=== PATIENT | male | born 2000 | race Caucasian/White ===

== ENCOUNTER 2025-04-01 18:36 | Emergency (ER) | payer OTHER, BC, SELFPAY ==
--- NOTE | ~2025-04-01 | CT_ITS ---
CT of the Abdomen and Pelvis: Indication: Abdominal pain Technique: 2.5 mm axial scans were obtained through the abdomen and pelvis following intravenous adm inistration of 100 cc of Omnipaque 350. Dose reduction technique was used on this scan by utilizing a utomated exposure control and iterative reconstruction technique. The dose-length product (DLP) was 2 74.47 mGy-cm. Findings: Scans through the lung bases are unremarkable. The liver, spleen, pancreas, gallbladder, adrenals and kidneys are within normal limits. No evidence of aortic aneurysm. No lymphadenopathy. No bowel obstruction or bowel wall thickening. There is no evidence to suggest acute appendicitis. Images through the pelvis were performed. Urinary bladder unremarkable. No pelvic mass seen. No ascit es. Impression: No significant abnormalities seen. Reviewed, dictated and finalized at location . Impression: No significant abnormalities seen.
[2025-04-01 18:39] VITALS: BP 154/103; PULSE 121; RESP 18; TEMP 36.7; O2SAT 99
--- OUTSIDE RECORDS SUMMARY | 2025-04-01 18:39 | XMS_ITS | Referral Summary ---
Author Organization [address] Address [address] [place] [phone] Care Team Providers Care Industrial Insulator Name Role Phone Unknown, Notinfile Primary Care Provider Unavail able Allergies No known active allergies Medications No known medications Active Problems No known active problems Social History Tobacco Use Types Packs/Day Years Used Date Smoking Tobacco: Never Assessed Sex and Gender Information Value Date Recorded Sex Assigned at Not on file Legal Sex Male 11:38 PM SPRING INTERN Gender Identity Not on file Sexual Orientation Not on file Last Filed Vital Signs Vital Sign Reading Time Taken Comments Blood Pressure 126/70 07/27/2024 7:31 PM CDT Pulse 78 07/27/2024 7:31 PM CDT Temperature 36.8 C (98.3 F) 07/27/2024 7:31 PM CDT Respiratory Rate 16 07/27/2024 7:31 PM CDT Oxygen Saturation 99% 07/27/2024 7:31 PM CDT Inhaled Oxygen Concentration - - Weight 68.5 kg (151 lb) 07/27/2024 7:31 PM CDT Height 182.9 cm (6') 07/27/2024 7:31 PM CDT Body Mass Index 20.48 07/27/2024 7:31 PM CDT Plan of Treatment Not on file Insurance AETNA SIG [id number] CIGNA AETNA SIG [id number] CIGNA AETNA SIG [id number] CIGNA Care Teams Industrial Insulator Relationship Specialty Start Date End Date Unknown, Notinfile PCP - General 10/05/22
--- OUTSIDE RECORDS SUMMARY | 2025-04-01 18:39 | XMS_ITS | Clinical Summary ---
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 Gender Identity Not on file Sexual Orientation Not on file Obstetrics History Last Filed Vital Signs Vital Sign Reading [...] 07/27/2024 7:31 PM CDT Plan of Treatment Health Maintenance Due Date Last Done Comments Depression Screening 2000 Hepatitis C Screening 2000 HPV Vaccines (1 - Male 3-dos e series) 01/19/2015 Regular Well Visit/Exam 18-64 01/19/2018 Influenza Vaccine (Season Ended) 2025 DTaP/Tdap/Td Vaccine (8 - Td or Tdap) 04/13/2031 04/13/2021, 10/10/2012, 05/20/2004, Additional history exists Hepatitis B Screening Completed 06/07/2001 , 2000, 2000 Pneumococcal vaccine <65 Completed 002, 2000, 2000, Additional history exists Varicella Vaccines Completed 10/10/2012, 06/07/2001 Insurance AETNA SIG [id number] CIGNA AETNA SIG [id number] CIGNA AETNA SIG [id number] CIGNA Care Teams Button Grader Relationship Specialty Start Date End Date Unknown, Notinfile PCP - General 10/05/22
--- OUTSIDE RECORDS SUMMARY | 2025-04-01 18:39 | XMS_ITS | Clinical Summary ---
Author Organization [facility] Address [address] [facility] [place] [address] Care Team Providers Care Occupational Therapist Assistant Name Role Phone Unavailable Primary Care Provider Unavailabl e Source Comments [facility],non-owned Affiliates and Associated Physician Practices is amultiple site organization consisting of ambulatory clinics and hospital sitesin [place], [place], [place]. This disclosure is being madepursuant to the Care Everywhere program and may not contain all information available regarding this patient. Last updated 18.[facility] Allergies No known active allergies Medications * Be aware that medications may not be up to date on this document. Alwaysverify current medications with the patient. No known medications Active Problems No known active problems Immunizations Immunization Administration Dates Next Due DTaP VACCINE IM (6wk-6yrs) 05/20/2004,,2000, 0,2000 HIB Hep B 06/07/2001,2000,2000 MENINGOCOCCAL ACWY (MCV4P) VAC IM 10/10/2012 MMR 05/20/2004,06/07/2001 PNEUMOCOCCAL PCV7 CONJ, PEDS 12/07/2001, 2000,2000, 0 POLIO IPV 05/20/2004, 2,2000, 0 TDAP (7yrs+) 10/10/2012 VARICELLA 10/10/2012,06/07/2001 Social History Tobacco Use Types Packs/Day Years Used Date Smoking Tobacco: Every Day Smokeless Tobacco: Never Alcohol Use Standard Drinks/Week Comments Not Asked 0 (1 standard drink = 0.6 oz pur e alcohol) Sex and Gender Information Value Date Recorded Sex Assigned at Not on file Legal 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 Male 1:57 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 Gender Identity Not on file Sexual Orientation Not on file Last Filed Vital Signs Vital Sign Reading Time Taken Comments Blood Pressure 118/62 03/18/2018 11:53 AM CDT Pulse 60 03/18/2018 11:53 AM CDT Temperature 37 C (98.6 F) 03/18/2018 11:53 AM CDT Respiratory Rate 16 03/18/2018 11:53 AM CDT Oxygen Saturation 98% 03/18/2018 11:53 AM CDT Inhaled Oxygen Concentration - - Weight 59 kg (130 lb) 03/18/2018 11:53 AM CDT Height 182.9 cm (6') 03/18/2018 11:53 AM CDT Body Mass Index 17.63 03/18/2018 11:53 AM CDT Plan of Treatment Health Maintenance Due Date Last Done Comments HIV SCREENING 01/19/2015 HPV VACCINE (1 - Male 3-dose series) 01/19/2015 HEPATITIS C SCREENING 01/15/2018 DTAP/TDAP/TD VACCINES (7 - Td or Tdap) 10/10/2022 10/10/2012, 05/20/2004, 12/07/2001, Additional history exists COVID-19 VACCINE ( - season) 2024 DEPRESSION SCREENING 10/03/2024 INFLUENZA VACCINE (Season Ended) 2025 ZOSTER VACCINE (1 of 2) 01/19/2050 HEPATITIS B VACCINE Completed 06/07/2001, 2000, 2000 HIB VACCINE Completed 06/07/2001, 0810/1999, 2000 PNEUMOCOCCAL VACCINE Completed 12/07/2001, 2000, 2000, Additional history exists MENINGOCOCCAL GROUPS A/C/Y/W VACCINE Aged Out 10/10/2012 No longer eligible based on patient's age to complete this topic MENINGOCOCCAL (Group B) VACCINE SHARED DECISION-MAKING Aged Out No longer eligible based on patient's age to complete this topic
--- OUTSIDE RECORDS SUMMARY | 2025-04-01 18:39 | XMS_ITS | Clinical Summary ---
Author Organization [facility] Address [address] [place] [address] Phone Care Team Providers Care Web Analyst Name Role Phone Provider, None Primary Care Provider Unavailabl e Allergies No known active allergies Medications No known medications Social History Tobacco Use Types Packs/Day Years Used Date Smoking Tobacco: Never Smokeless Tobacco: Never Tobacco Cessation:Counseling Given: No Alcohol Use Standard Drinks/Week Comments Yes 0 (1 standard drink = 0.6 oz pur e alcohol) social Sexually Active Control Partners Comments Yes Female Sex and Gender Information Value Date Recorded Sex Assigned at Not on file Legal Sex Male 11:42 AM CDT Gender Identity Not on file Sexual Orientation Not on file Last Filed Vital Signs Vital Sign Reading Time Taken Comments Blood Pressure 140/72 09/21/2018 3:21 PM DCS ENGINEER Pulse 64 09/21/2018 3:21 PM DCS ENGINEER Temperature 36.1 C (97 F) 09/21/2018 3:21 PM DCS ENGINEER Respiratory Rate 16 09/21/2018 3:21 PM DCS ENGINEER Oxygen Saturation 98% 09/21/2018 3:21 PM DCS ENGINEER Inhaled Oxygen Concentration - - Weight 63 kg (139 lb) 09/21/2018 3:21 PM DCS ENGINEER Height 182.9 cm (6') 09/21/2018 3:21 PM DCS ENGINEER Body Mass Index 18.85 09/21/2018 3:21 PM DCS ENGINEER Plan of Treatment Health Maintenance Due Date Last Done Comments Hepatitis C Virus (HCV) Screening 2000 Human Papillomavirus (HPV) Immunization (1 - Male 3-dose series) 01/19/2015 Hepatitis B Immunization (1 of 3 - 19+ 3-dose series) 01/19/2019 SARS-COV-2 Immunization ( season) 2024 Influenza Immunization (Seas on Ended) 2025 Respiratory Syncytial Virus (RSV) Immunization (Adult) (1 - 1-dose 75+ series) 01/19/2075 DTaP/Tdap/Td Immunization Discontinued 04/13/2021 TdaP Immunization Completed 04/13/2021 Meningococcal Immunization (ACWY) Aged Out No longer eligible based on patient's age to complete this topic Pneumococcal Immunization Combined Aged Out No longer eligible based on patient's age to complete this topic Rotavirus Immunization Aged Out No lo nger eligible based on patient's age to complete this topic Insurance [facility] Care Teams Web Analyst Relationship Specialty Start Date End Date Provider, None [place] PCP - General 07/10/18
[2025-04-01 19:01] LABS: Hematocrit 43.8 % (42.0-52.0); Hemoglobin 15.5 g/dL (14.0-18.0); Immature Granulocyte Percent A 0.3 % (0-0.5); Lymphocytes Absolute Auto 3.38 K/mm3 (0.9-3.2); Mean Corpuscular HGB Conc 35.4 g/dl (32-36); Mean Corpuscular Hemoglobin 30.8 pg (26-34); Mean Corpuscular Volume 87.1 fl (80-100); Nucleated Red Blood Cells Absolute Auto 0.000 K/mm3 (0.0-0.012); Nucleated Red Blood Cells Perc 0.0 % (0.0-0.2); Platelet Count Result 276 k/mm3 (150-375); Red Blood Count 5.03 M/mm3 (4.6-6.20); White Blood Count 9.5 K/mm3 (4.5-10.0)
[2025-04-01 19:14] LABS: Alanine Aminotransferase 23 U/L (6-50); Albumin Level 5.0 g/dL (3.5-5.1); Alkaline Phosphatase 60 U/L (38-126); Anion Gap 12 mmol/L (4-12); Aspartate Amino Transferase 38 U/L (17-59); Bilirubin,Total 1.8 mg/dL (0.2-1.3); Blood Urea Nitrogen 10 mg/dL (9-20); Calcium 9.4 mg/dL (8.4-10.2); Carbon Dioxide 25 mmol/L (22-30); Chloride 98 mmol/L (98-107); Estimated CRCL calculation 93 ml/min; Estimated Glomerular Filt Rate > 60; Glucose 114 mg/dL (65-110); Lipase 66 U/L (23-300); Potassium 4.0 mmol/L (3.4-5.0); Sodium 135 mmol/L (137-145); Total Protein 8.4 g/dL (6.3-8.2)
[2025-04-01 19:41] LABS: Add Urine Microscopic? NO; Appearance Urine Clear (Clear); Glucose Urine UA Negative (Negative); Leukocyte Esterase Ur Negative LEU/UL (Negative); Nitrate Urine Negative (Negative); Specific Grav Ur 1.005 (1.001-1.035)
[2025-04-01 23:09] VITALS: BP 138/81; PULSE 65; RESP 17; O2SAT 100
--- NOTE | 2025-04-01 23:29 | ED.ABDPAIN ---
HPI - Abdominal Pain General Chief Complaint: Abdominal Pain Stated Complaint: Early signs of cirrhosis Time Seen by Provider: 04/01/25 22:55 Source: patient and other Mode of arrival: ambulatory Limitations: no limitations History of Present Illness HPI narrative: Patient presents reportedly with concerns that he has early signs of cirrhosis. He reports days had a decreased/no appetite. He has been intermittently nauseated but not vomiting. He is having right lower quadrant abdominal pain although states it is very pinpoint in seems that is tender to the touch. He does have a sunburn across his chest notes that the pain in the RLQ is constant but worse with palpation. Denies any fevers, chills, or loose stools. He is concerned for yellow around the eyes. He does endorse drinking daily. 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 On days off, also drinks, combination beers and liquor. He has been having nightly urinary frequency. This started a few weeks ago. He denies any incontinence. No previous abdominal surgeries. Does not have a primary care physician. 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 HEAD: Normocephalic, atraumatic. EYES: Non injected, mildly icteric bilaterally ENT: Nares clear, no rhinorrhea or epistaxis. Gross auditory acuity intact. NECK: Supple. No meningismus. CHEST: Speaking in full sentences. No respiratory distress. HEART: Tachycardic rate and rhythm. . ABDOMEN: Soft, nondistended. No rigidity or guarding. Not peritoneal including no localized peritonitis (no TTP throughout). EXTREMITIES: Normal range of motion. No lower extremity edema. SKIN: Warm, dry, no rash. 1st degree sunburn overlying chest and abdomen. NEURO: No focal deficits. Alert and oriented. Answering questions. Following commands. Normal speech without aphasia or dysarthria. PSYCH: Normal mood and affect. Course Vital Signs Vital signs: Vital Signs Temperature 98.1 F 04/01/25 18:39 Pulse Rate 121 H 04/01/25 18:39 Respiratory Rate 18 04/01/25 18:39 Blood Pressure 154/103 H 04/01/25 18:39 Pulse Oximetry 99 04/01/25 18:39 Oxygen Delivery Room Air 04/01/25 18:39 Temperature 98.2 F 04/02/25 02:33 Pulse Rate 78 04/02/25 02:33 Respiratory Rate 17 04/02/25 02:33 Blood Pressure 134/88 04/02/25 02:33 Pulse Oximetry 99 04/02/25 02:33 Oxygen Delivery Room Air 04/01/25 23:09 MDM - Abdominal Pain MDM Narrative Medical decision making narrative: Patient presents with concern for early signs of cirrhosis. 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 Having nausea and right lower quadrant pain as well as faint scleral icterus and increased nightly urinary frequency. In the emergency department he is afebrile with vital signs notable for tachycardia hypertension though resolved on repeat. Bilirubin is mildly elevated. Otherwise, LFTs are in normal. No leukocytosis. Predominantly indirect bili. Ddx indirect hyperbilirubinemia Over production of bilirubin (hemolytic anemia), reduced uptake (cirrhosis or congestive hepatopathy), impaired conjugation, biliary obstruction, hereditary disease (Gilbert syndrome, Garret-Kj syndrome, Crigler-Ari syndrome), medication side effect (allopurinol, anabolic steroids, antibiotics, antimalarials, etc.) Patient's workup otherwise unremarkable. CT read as possible enteritis as below. Patient is otherwise stable for discharge. Provided prescription Zofran. Advised follow-up with a PCP in given contact information for 1 Differential Diagnosis Differential diagnosis: Likely abdominal pain, acute appendicitis, constipation, pancreatitis and other (Considered cirrhosis, hepatitis, spontaneous bacterial peritonitis; alcohol side effect/hangover; UTI; alcohol side effect as a diuretic) Lab Data Attestation: I reviewed the patient's lab results. Lab results narrative: CBC generally unremarkable except for abnormalities on differential 04/01/25 18:53 04/01/25 18:53 Labs: Lab Results 04/01/25 04/02/25 04/02/25 Range/Units 18:53 00:09 00:16 WBC 9.5 (4.5-10.0) K/mm3 RBC 5.03 (4.6-6.20) M/mm3 Hgb 15.5 (14.0-18.0) g/dL Hct 43.8 (42.0-52.0) % MCV 87.1 (80-100) fl MCH 30.8 (26-34) pg MCHC 35.4 (32-36) g/dl RDW 12.2 (11.5-14.5) % Plt Count 276 (150-375) k/mm3 MPV 9.1 (7.4-10.4) fl Immature Gran % (Auto) 0.3 (0-0.5) % Neut % (Auto) 51.0 (45.5-73.1) % Lymph % (Auto) 35.7 (18.3-44.2) % [place] % (Auto) 10.8 H (2.6-8.5) % Eos % (Auto) 1.5 (0-4.4) % Baso % (Auto) 0.7 (0.2-1.2) % Lymph # (Auto) 3.38 H (0.9-3.2) K/mm3 [place] # (Auto) 1.0 H (0.1-0.6) K/mm3 Eos # (Auto) 0.1 (0-0.3) K/mm3 Baso # (Auto) 0.1 (0.0-0.1) K/mm3 Abs Immat Gran (auto) 0.03 (0.00-0.031) K/mm3 Absolute Neuts (auto) 4.8 (1.3-6.7) K/mm3 Absolute Nucleated RBC 0.000 (0.0-0.012) K/mm3 Nucleated RBC % 0.0 (0.0-0.2) % PT 13.3 (11.1-14.7) Seconds INR 1.0 APTT 26.3 (22.3-36.8) Seconds Sodium 135 L (137-145) mmol/L Potassium 4.0 (3.4-5.0) mmol/L Chloride 98 (98-107) mmol/L Carbon Dioxide 25 (22-30) mmol/L Anion Gap 12 (4-12) mmol/L BUN 10 (9-20) mg/dL Creatinine 1.07 (0.7-1.3) mg/dL Estim Creat Clear Calc 93 ml/min Estimated GFR > 60 (59 - ) Glucose 114 H (65-110) mg/dL Calcium 9.4 (8.4-10.2) mg/dL Total Bilirubin 1.8 H (0.2-1.3) mg/dL Direct Bilirubin 0.0 (0-0.3) mg/dL Indirect Bilirubin 1.8 H (0-1.1) mg/dL AST 38 (17-59) U/L ALT 23 (6-50) U/L Alkaline Phosphatase 60 (38-126) U/L Ammonia < 9 L (9-30) umol/L Total Protein 8.4 H (6.3-8.2) g/dL Albumin 5.0 (3.5-5.1) g/dL Lipase 66 (23-300) U/L Urine Color Yellow (Yellow) Urine Appearance Clear (Clear) Urine pH 6.5 (5.0-9.0) Ur Specific [place] 1.005 (1.001-1.035) Urine Protein Negative (Negative) mg/dL Urine Glucose (UA) Negative (Negative) mg/dL Urine Ketones Negative (Negative) mg/dL Ur Blood (Man) Negative (Negative) Urine Nitrate Negative (Negative) Urine Bilirubin Negative (Negative) Urine Urobilinogen 1.0 (<2.0) mg/dL Leukocyte Esterase Rfl Negative (Negative) ELZA/UL Imaging Data Radiologist's impression: ITS Impressions Abdomen/Pelvis CT 04/02/25 05:19 Impression: No significant abnormalities seen. CT Abd Pelvis Stat Rad w/ Contrast: Fluid and gas-filled small bowel loops may represent enteritis in the appropriate clinical setting. Normal appendix. Evaluation of the stomach is limited by under distention. No hydronephrosis or obstructing ureteral stone Discharge Plan Discharge Clinical Impression: Indirect hyperbilirubinemia, Enteritis, Decreased appetite, Daily consumption of alcohol, 1st degree sunburn Patient Disposition: Home Condition: Stable Instructions: Antibiotic Form, Sunburn (ED), At-Risk Alcohol Use (ED), Alcohol Dependence (ED), Enteritis (ED) Additional Instructions: Your workup was generally reassuring. Your CT scan showed possible enteritis. This is a nonspecific finding represents generalized inflammation of the small intestine. Typically viral in nature and self-limiting. Usually presents with diarrhea however not always in your decreased appetite may be a symptom of this. Your indirect bilirubin was somewhat elevated. Your primary care physician can follow up this with a repeat lab draw to see if there is resolution. Because you do not have a primary care physician the name of doctors listed below. Work to reduce your alcohol consumption. Return to the emergency department any new or worsening symptoms. The oral disintegrating tablets Zofran can be used if your nausea returns. Patient Language: Azeri Prescriptions: New ondansetron 4 mg tablet,disintegrating 4 mg PO Q8H PRN (Reason: nausea and vomiting) Qty: 7 0RF Follow-up/Referrals: Jackson Torres MD [Physician] - UNKNOWN,DOCTOR [Primary Care Provider] - Stand Alone Forms: Work/School Release IP Time of Disposition: 02:23
--- OUTSIDE RECORDS SUMMARY | 2025-04-02 00:10 | XMS_ITS | Clinical Summary ---
Author Organization [facility] Address [address] [place] [address] Phone Care Team Providers Care Annual Campaign Manager Name Role Phone Provider, None Primary Care [...] Comments Blood Pressure 140/72 09/21/2018 3:21 PM SENIOR PROPERTY ACCOUNTANT Pulse 64 09/21/2018 3:21 PM SENIOR PROPERTY ACCOUNTANT Temperature 36.1 C (97 F) 09/21/2018 3:21 PM SENIOR PROPERTY ACCOUNTANT Respiratory Rate 16 09/21/2018 3:21 PM SENIOR PROPERTY ACCOUNTANT Oxygen Saturation 98% 09/21/2018 3:21 PM SENIOR PROPERTY ACCOUNTANT Inhaled Oxygen Concentration - - Weight 63 kg (139 lb) 09/21/2018 3:21 PM SENIOR PROPERTY ACCOUNTANT Height 182.9 cm (6') 09/21/2018 3:21 PM SENIOR PROPERTY ACCOUNTANT Body Mass Index 18.85 09/21/2018 3:21 PM SENIOR PROPERTY ACCOUNTANT Plan of Treatment Health Maintenance Due Date [...] patient's age to complete this topic Insurance [facility] Member Subscriber Plan / Payer (Ef fective 2020-Present) Name:Irving Lopez Relation to Subscriber:Child Name:DANII LOPEZ Date of :1968 (Home) Address: [address] [place] [id number] Payer ID:[id number] Type:PPO Address: [facility] [id number] [place] [phone] Care Teams Annual Campaign Manager Relationship Specialty Start Date End Date Provider, None [place] PCP - General 07/10/18
--- OUTSIDE RECORDS SUMMARY | 2025-04-02 00:10 | XMS_ITS | Clinical Summary ---
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
--- OUTSIDE RECORDS SUMMARY | 2025-04-02 00:10 | XMS_ITS | Clinical Summary ---
Author Organization [facility] Address [address] [facility] [place] [address] Care Team Providers Care Wallpaper Inspector And Shipper Name Role Phone Unavailable Primary Care Provider Unavailabl e Source Comments [facility],non-owned Affiliates and Associated Physician Practices is amultiple site organization consisting of ambulatory clinics and hospital sitesin [place], [place], [place] and [place]. This disclosure is being madepursuant to the Care Everywhere program and may not contain all information available regarding this patient. 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
--- OUTSIDE RECORDS SUMMARY | 2025-04-02 00:10 | XMS_ITS | Referral Summary ---
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
[2025-04-02] MEDS: ONDANSETRON INJ 4 MG/2 ML VIAL IV PUSH (00:13)
[2025-04-02 00:23] LABS: Ammonia < 9 umol/L (9-30)
[2025-04-02 00:30] LABS: INR 1.0; Prothrombin Time 13.3 Seconds (11.1-14.7)
[2025-04-02 00:31] LABS: Partial Thromboplastin Time 26.3 Seconds (22.3-36.8)
[2025-04-02 02:33] VITALS: BP 134/88; PULSE 78; RESP 17; TEMP 36.8; O2SAT 99
== END 2025-04-02 02:35 | disposition home or self-care (01) ==
PROVIDERS: Student in an Organized Health Care Education/Training Program; Emergency Provider Student in an Organized Health Care Education/Training Program
DX: E80.6 Other disorders of bilirubin metabolism (principal); K52.9 Noninfective gastroenteritis and colitis, unspecified; R63.0 Anorexia; F10.90 Alcohol use, unspecified, uncomplicated; Y90.9 Presence of alcohol in blood, level not specified; L55.0 Sunburn of first degree
CPT/HCPCS: 36415; 74177; 80053; 81003; 82140; 82248; 83690; 85025; 85610; 85730; 96374; 99284; J2405; Q9967

== ENCOUNTER 2025-04-12 13:32 | Outpatient (CLI) | payer OTHER, SELFPAY ==
--- OUTSIDE RECORDS SUMMARY | 2025-04-12 13:45 | XMS_ITS | Clinical Summary ---
Author Organization [facility] [employer] Address [address] [place] [address] Care Team Providers Care Stockbroking Dealer Name Role Phone Unavailable Primary Care Provider Unavailabl e Source Comments [facility] [employer],non-owned Affiliates and Associated Physician Practices is amultiple site organization consisting of ambulatory clinics and hospital sitesin [place], [place], [place] and [place]. This disclosure is being madepursuant to the Care Everywhere program and may not contain all information available regarding this patient. 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
--- OUTSIDE RECORDS SUMMARY | 2025-04-12 13:45 | XMS_ITS | Clinical Summary ---
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 Gender Identity Not on file Sexual Orientation [...] Regular Well Visit/Exam 18-64 01/19/2018 Influenza Vaccine (#1) 2025 DTaP/Tdap/Td Vaccine (8 - Td or Tdap) 04/13/2031 04/13/2021, 10/10/2012, 05/20/2004, Additional history exists Hepatitis B Screening Completed 06/07/2001 , 2000, 2000 Pneumococcal vaccine <65 Completed 002, 2000, 2000, Additional history exists Varicella Vaccines Completed 10/10/2012, 06/07/2001 Insurance AETNA SIG [id number] CIGNA AETNA SIG [id number] CIGNA AETNA SIG [id number] CIGNA Care Teams Baking Factory Worker Relationship Specialty Start Date End Date Unknown, Notinfile PCP - General 10/05/22
--- OUTSIDE RECORDS SUMMARY | 2025-04-12 13:45 | XMS_ITS | Referral Summary ---
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
--- OUTSIDE RECORDS SUMMARY | 2025-04-12 13:45 | XMS_ITS | Clinical Summary ---
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 CATTLE INSPECTOR Pulse 64 09/21/2018 3:21 PM CATTLE INSPECTOR Temperature 36.1 C (97 F) 09/21/2018 3:21 PM CATTLE INSPECTOR Respiratory Rate 16 09/21/2018 3:21 PM CATTLE INSPECTOR Oxygen Saturation 98% 09/21/2018 3:21 PM CATTLE INSPECTOR Inhaled Oxygen Concentration - - Weight 63 kg (139 lb) 09/21/2018 3:21 PM CATTLE INSPECTOR Height 182.9 cm (6') 09/21/2018 3:21 PM CATTLE INSPECTOR Body Mass Index 18.85 09/21/2018 3:21 PM CATTLE INSPECTOR Plan of Treatment Health Maintenance Due Date Last Done Comments Hepatitis C Virus (HCV) Screening 2000 Human Papillomavirus (HPV) Immunization (1 - Male 3-dose series) 01/19/2015 Hepatitis B Immunization (1 of 3 - 19+ 3-dose series) 01/19/2019 SARS-COV-2 Immunization ( season) 2024 Influenza Immunization (#1) 2025 Respiratory Syncytial Virus (RSV) Immunization (Adult) [...] patient's age to complete this topic Insurance [facility] Care Teams Manager Front Office Relationship Specialty Start Date End Date Provider, None [place] PCP - General 07/10/18
[2025-04-12 14:31] LABS: Hematocrit 42.1 % (42.0-52.0); Hemoglobin 14.5 g/dL (14.0-18.0); Immature Granulocyte Percent A 0.4 % (0-0.5); Lymphocytes Absolute Auto 2.08 K/mm3 (0.9-3.2); Mean Corpuscular HGB Conc 34.4 g/dl (32-36); Mean Corpuscular Hemoglobin 30.7 pg (26-34); Mean Corpuscular Volume 89.2 fl (80-100); Nucleated Red Blood Cells Absolute Auto 0.000 K/mm3 (0.0-0.012); Nucleated Red Blood Cells Perc 0.0 % (0.0-0.2); Platelet Count Result 246 k/mm3 (150-375); Red Blood Count 4.72 M/mm3 (4.6-6.20); White Blood Count 5.7 K/mm3 (4.5-10.0)
[2025-04-12 14:40] LABS: Alanine Aminotransferase 28 U/L (6-50); Albumin Level 4.8 g/dL (3.5-5.1); Alkaline Phosphatase 48 U/L (38-126); Anion Gap 9 mmol/L (4-12); Aspartate Amino Transferase 35 U/L (17-59); Bilirubin,Total 0.9 mg/dL (0.2-1.3); Blood Urea Nitrogen 11 mg/dL (9-20); Calcium 9.2 mg/dL (8.4-10.2); Carbon Dioxide 27 mmol/L (22-30); Chloride 104 mmol/L (98-107); Cholesterol 202 mg/dL (0-200); Estimated Glomerular Filt Rate > 60; Glucose 105 mg/dL (65-110); HDL Direct 55 mg/dL; Potassium 4.3 mmol/L (3.4-5.0); Sodium 140 mmol/L (137-145); Total Protein 8.0 g/dL (6.3-8.2); Triglycerides 65 mg/dL (<150)
[2025-04-12 14:59] LABS: Free T4 Free Thyroxine 0.85 ng/dL (0.78-2.19)
[2025-04-12 15:11] LABS: Hepatitis B Surface Antigen Negative (Negative); Thyroid Stimulating Hormone 1.980 uIU/mL (0.465-4.680); Total Triiodothyronine (T3) 1.27 NG/ML (0.82-1.58)
[2025-04-12 15:17] LABS: HAV RESULT Negative (Negative); Hepatitis B Core IgM Result Negative (Negative)
== END 2025-04-12 13:33 | disposition home or self-care (01) ==
PROVIDERS: PCP Family Medicine; Visit Provider Registered Nurse
DX: E78.5 Hyperlipidemia, unspecified (principal); R17 Unspecified jaundice; R53.83 Other fatigue; Z11.59 Encounter for screening for other viral diseases
CPT/HCPCS: 36415; 80053; 80061; 80074; 84439; 84443; 84480; 85025